=== PATIENT | male | born 1995 | race Caucasian/White ===

== ENCOUNTER 2018-12-10 15:18 | Emergency (ER) | payer OTHER ==
[2018-12-10] MEDS ORDERED: DEXAMETHASONE 10 MG/ML VIAL IM STA (15:42)
--- NOTE | 2018-12-10 15:45 | ED Physician Documentation ---
PD HPI SKIN - Stated complaint Stated Complaint: BODY ITCHING/RT EYE ITCHING - Chief complaint Chief Complaint: Allergic Rx - History obtained from History obtained from: Patient - History of Present Illness Timing - onset: How many weeks ago (3) Timing - duration: Weeks (3) Timing - details: Gradual onset Pain level max: 0 Pain level now: 0 Location: Bodywide Quality / character: Itchy Improved by: Other (prednisone helped mildly) Worsened by (comment): COMMENT (nothing) Associated symptoms: No: Fever, Myalgias, Joint pain, Headache, Facial swelling, Dyspnea, Abd pain, N/V/D, Urinary sx Contributing factors: Exposed to Poison emilie/oak Similar symptoms before: Diagnosis (has had this many times in the past.) Recently seen: Emergency Dept ([facility] and placed on prednisone for 5 days, states rash improved slightly but now worse.) Review of Systems Constitutional: denies: Fever, Chills GI: denies: Vomiting, Diarrhea Musculoskeletal: denies: Neck pain, Back pain Neurologic: denies: Headache PD PAST MEDICAL HISTORY - Past Medical History Past Medical History: No - Past Surgical History Past Surgical History: No - Present Medications Home Medications: Ambulatory Orders Medication Instructions Recorded Confirmed predniSONE [Deltasone] 10 mg PO [id number] #42 tab 12/10/18 - Allergies Allergies/Adverse Reactions: Allergies Allergy/AdvReac Type Severity Reaction Status Date / Time No Known Drug Allergies Allergy Verified 12/10/18 15:25 PD ED PE NORMAL - Vitals Vital signs reviewed: Yes - General General: Alert and oriented X 3, No acute distress - HEENT HEENT: Moist mucous membranes - Neck Neck: Supple, no meningeal sign - Cardiac Cardiac: RRR - Respiratory Respiratory: No respiratory distress, Clear bilaterally - Derm Derm: Warm and dry, Other (Vesicular scabbed rash over the bilateral forearms, legs and right cheek.) - Neuro Neuro: Alert and oriented X 3 Results - Vitals Vitals: Vital Signs - 24 hr 12/10/18 15:26 Temperature 36.5 C Heart Rate 69 Respiratory 16 Rate Blood Pressure 129/67 O2 Saturation 99 Oxygen O2 Source Room air PD MEDICAL DECISION MAKING - ED course Complexity details: considered differential, d/w patient ED course: Patient appears to have a contact dermatitis. Likely from poison oak/emilie. Will place on a steroid taper. Also given a dose of dexamethasone intramuscularly here. If he fails to improve, will follow-up with dermatology. Also recommend that he buy an hhbn-nrb-vqghpgo poison oak/emilie oil remover. Patient counseled regarding signs and symptoms for which I believe and urgent re-evaluation would be necessary. Patient with good understanding of and agreement to plan and is comfortable going home at this time This document was made in part using voice recognition software. While efforts are made to proofread this document, sound alike and grammatical errors may occur. Departure - Departure Disposition: 01 Home, Self Care Clinical Impression: Poison emilie Condition: Good Instructions: ED Dermatitis Poison Emilie Follow-Up: [facility] [Provider Group] - Within 3 Days [facility] [Provider Group] Prescriptions: predniSONE [Deltasone] 10 mg PO [id number] #42 tab Comments: Take the steroids until gone. Return if you worsen. If you are not improving as expected you should follow-up with dermatology.
[2018-12-10 16:14] VITALS: BP 121/63
== END 2018-12-10 16:17 | disposition home or self-care (01) ==
LOC: ED 15:18
DX: L23.7 Allergic contact dermatitis due to plants, except food (principal)
CPT/HCPCS: 99283; 99284

== ENCOUNTER 2019-04-28 12:57 | Emergency (ER) | payer OTHER ==
[2019-04-28 13:07] VITALS: BP 129/67
--- NOTE | 2019-04-28 13:29 | ED Physician Documentation ---
PD HPI URI - Stated complaint Stated Complaint: SORE THROAT - Chief complaint Chief Complaint: Heent - History obtained from History obtained from: Patient - History of Present Illness Timing - onset: Other (3 to 4 days of sore throat with minimal congestion cough. Had a fever last night. No health problems. No recent travel.) Review of Systems Constitutional: reports: Fever, Chills, Myalgias, Fatigue Ears: denies: Loss of hearing, Ear pain Nose: reports: Rhinorrhea / runny nose, Congestion, Sinus pressure / pain Throat: reports: Sore throat PD PAST MEDICAL HISTORY - Past Medical History Past Medical History: No Cardiovascular: None Respiratory: None Neuro: None Endocrine/Autoimmune: None GI: None : None HEENT: None Psych: None - Past Surgical History Past Surgical History: No - Present Medications Home Medications: Ambulatory Orders Medication Instructions Recorded Confirmed No Known Home Medications 04/28/19 04/28/19 - Allergies Allergies/Adverse Reactions: Allergies Allergy/AdvReac Type Severity Reaction Status Date / Time No Known Drug Allergies Allergy Verified 04/28/19 13:07 - Social History Does the pt smoke?: No Smoking Status: Never smoker Does the pt drink ETOH?: Yes Does the pt have substance abuse?: No - Immunizations Immunizations are current?: Yes PD ED PE NORMAL - Vitals Vital signs reviewed: Yes - General General: Alert and oriented X 3, No acute distress - HEENT HEENT: Other (Red tonsillar pillars without tonsillar swelling or exudates, also posterior cobblestoning, no anterior cervical adenopathy, TMs are normal.) - Neck Neck: Supple, no meningeal sign, No bony TTP - Neuro Neuro: Alert and oriented X 3, Normal speech Results - Vitals Vitals: Vital Signs - 24 hr 04/28/19 13:04 Temperature 36.6 C Heart Rate 100 Respiratory 18 Rate Blood Pressure 129/67 O2 Saturation 97 Oxygen O2 Source Room air - Labs Labs: Laboratory Tests 04/28/19 13:11 Group A Strep Rapid Negative PD MEDICAL DECISION MAKING - ED course ED course: 23-year-old gentleman presents with clinical and rapid strep negative viral pharyngitis, conservative care was advised. Departure - Departure Disposition: 01 Home, Self Care Clinical Impression: Pharyngitis Qualifiers: Pharyngitis/tonsillitis etiology: unspecified etiology Qualified Code(s): J02.9 - Acute pharyngitis, unspecified Condition: Good Record reviewed to determine appropriate education?: Yes Instructions: ED Pharyngitis Viral Report Pending Comments: Your strep test is negative, we will perform a throat culture, if it grows a pathogen bacterial pathogen we will call you in 48 hours or so, return for new or worsening symptoms. Follow-up with your foot doctor in 5 days if not better. Ibuprofen and Chloraseptic [id number] as needed for pain.
[2019-04-28 13:35] LABS: RAPID STREP SCREEN Negative (Negative)
== END 2019-04-28 13:40 | disposition home or self-care (01) ==
LOC: ED 12:57
DX: J02.8 Acute pharyngitis due to other specified organisms (principal); B97.89 Other viral agents as the cause of diseases classified elsewhere
CPT/HCPCS: 87070; 87077; 87430; 99282; 99283

== ENCOUNTER 2021-03-10 07:14 | Emergency (ER) | payer OTHER ==
[2021-03-10] MEDS ORDERED: KETOROLAC 30 MG/ML VIAL IM STA (07:50)
[2021-03-10] MEDS ORDERED: HYDROmorphone 1 MG/ML CARPUJECT IM STA (07:50)
[2021-03-10] MEDS ORDERED: ACETAMINOPHEN 325 MG TABLET PO STA (07:50)
[2021-03-10] MEDS ORDERED: methocarbamoL 500 MG TABLET PO STA (07:50)
--- NOTE | 2021-03-10 08:35 | CT Report ---
PROCEDURE: Abdomen/Pelvis WO INDICATIONS: LEFT flank to abd pain for 3 days, worsening TECHNIQUE: Noncontrast 5 mm thick sections acquired from the diaphragms to the symphysis. 5 mm coronal and sagi ttal reformats were then performed. For radiation dose reduction, the following was used: automated exposure control, adjustment of mA and/or kV according to patient size. COMPARISON: None. FINDINGS: Inferior chest: No focal consolidation, pleural effusion, or pneumothorax. No cardiomegaly or perica rdial effusion. Gallbladder: The gallbladder is distended with a smooth wall. Biliary tree: No intra-or extrahepatic biliary ductal dilatation. Liver: The liver demonstrates normal appearance. Spleen: Normal size and morphology is seen. Pancreas: Normal morphology without masses or inflammatory changes. Adrenals: Normal size without masses. Kidneys: Normal size and morphology. No contour deforming solid masses or evidence of obstructive uro lissy. Vasculature: No evidence of aneurysm or other significant vascular pathology. Lymphatic system: No pathologic enlargement by size criteria. Bowel: No intestinal obstruction. Moderate stool burden throughout the colon. Normal appendix. Peritoneum/Retroperitoneum: No free intraperitoneal gas or large collection. Urinary bladder: The urinary bladder is distended with a smooth thin wall. Pelvic organs: No significant abnormality. Bones/soft tissues: No significant abnormality. IMPRESSION: 1.No acute abnormality. 2.Moderate stool burden throughout the colon. Reviewed by: Rylan Abbasi MD on 03/10/2021 8:34 AM [facility] Approved by: Rylan Abbasi MD on 03/10/2021 8:34 AM [facility] Station ID: [id number]
[2021-03-10] MEDS ORDERED: HYDROcod/ACETAM 5/325 MG TABLET PO STA (09:00)
--- NOTE | 2021-03-10 09:05 | ED Physician Documentation ---
PD HPI BACK PAIN - Stated complaint Stated Complaint: BACK PAIN - Chief complaint Chief Complaint: Back Pain - History obtained from History obtained from: Patient - History of Present Illness Timing - onset: How many days ago (3) Timing - duration: Days (3) Timing - details: Abrupt onset (onset 3 days ago of left flank pain that eased after few hours and remained mild until last night when got worse. Has remained left flank to left mid abd.) Location: Lower, Left Quality: Pain, Sharp, Aching Associated symptoms: No: Fever, Weakness, Numbness Worsened by: Movement. No: Twisting, Palpation Contributing factors: No: Lifting, Twisting, Trauma (he is not aware of particular injury starting the pain.) Similar symptoms before: Has not had sx before Recently seen: Not recently seen Review of Systems Constitutional: denies: Fever, Chills Nose: denies: Rhinorrhea / runny nose, Congestion Throat: denies: Sore throat Respiratory: denies: Cough GI: denies: Nausea, Vomiting, Constipation, Diarrhea Skin: denies: Rash, Lesions Musculoskeletal: reports: Back pain Neurologic: denies: Focal weakness, Numbness, Near syncope PD PAST MEDICAL HISTORY - Past Medical History Past Medical History: No Cardiovascular: None Respiratory: None Neuro: None Endocrine/Autoimmune: None GI: None : None HEENT: None Psych: None Derm: None - Past Surgical History Past Surgical History: No - Present Medications Home Medications: Ambulatory Orders Medication Instructions Recorded Confirmed Docusate Sodium 100Mg Capsule 100 mg PO DAILY #15 cap 03/10/21 [Colace 100Mg Capsule] HYDROcod/ACETAM 5/325 [[place] 5/325] 1 ea PO Q6H PRN #14 tablet 03/10/21 Ibuprofen [Motrin] 600 mg PO TID PRN #25 tab 03/10/21 methocarbamoL [Robaxin] 500 mg PO Q6H PRN #20 tablet 03/10/21 - Allergies Allergies/Adverse Reactions: Allergies Allergy/AdvReac Type Severity Reaction Status Date / Time No Known Drug Allergies Allergy Verified 03/10/21 07:26 - Social History Does the pt smoke?: No Smoking Status: Never smoker Does the pt drink ETOH?: Yes Does the pt have substance abuse?: No - Immunizations Immunizations are current?: Yes PD ED PE NORMAL - Vitals Vital signs reviewed: Yes - General General: Alert and oriented X 3, Well developed/nourished, Other (appears in considerable pain left flank. ) - Cardiac Cardiac: RRR, No murmur - Respiratory Respiratory: Clear bilaterally - Abdomen Abdomen: Normal bowel sounds, Soft, Non distended, No organomegaly, Other (mild tender left mid abd wihtout guarding nor percussion tender. ) - Male Male : Deferred - Rectal Rectal: Deferred - Back Back: No spinal TTP, Other (left CVA tender to percussion. ) - Derm Derm: Normal color, Warm and dry, No rash - Neuro Neuro: Alert and oriented X 3, No motor deficit, No sensory deficit, Normal speech Results - Vitals Vitals: Oxygen O2 Source Room air - Rads (name of study) abd/pelvic CT Radiology: Prelim report reviewed (no kidney stones nor acute process. Moderate stool burden throughout colon. ), See rad report PD MEDICAL DECISION MAKING - ED course Complexity details: reviewed results, re-evaluated patient (improved with meds in ER. ), considered differential (left back pain concerning for kidney stone or intestinal process. Can get CT to ensure not cause other than muscular. ), d/w patient Departure - Departure Disposition: Home, Self Care Clinical Impression: Low back strain Qualifiers: Encounter type: initial encounter Qualified Code(s): S39.012A - Strain of muscle, fascia and tendon of lower back, initial encounter Condition: Stable Record reviewed to determine appropriate education?: Yes Instructions: ED Sprain Strain Lumbar Follow-Up: Carlene Hodge MD [Primary Care Provider] - Prescriptions: Docusate Sodium 100Mg Capsule [Colace 100Mg Capsule] 100 mg PO DAILY #15 cap Ibuprofen [Motrin] 600 mg PO TID PRN #25 tab PRN Reason: Pain HYDROcod/ACETAM 5/325 [[place] 5/325] 1 ea PO Q6H PRN #14 tablet PRN Reason: Pain methocarbamoL [Robaxin] 500 mg PO Q6H PRN #20 tablet PRN Reason: Spasms Comments: Your CT scan does not show any acute abnormalities. No kidney stones nor bony abnormality. Your spine alignment appears okay. No gross disc problems. This sounds like a muscle strain with spasms. Home for rest and light use for 2 to 3 days as needed. Then another 4 to 5 days after of note vigorous back muscle use such as lifting, push pull, back exercises at the gym. This allows for healing time and less spasming. Local treatments such as ice or heat, massage, chiropractic are all good. Ibuprofen 3 times a day with food to help with inflammation. Add Robaxin muscle relaxant if needed for spasms and stiffness. Tylenol 650 mg 3-4 times a day for the next several days. Use hydrocodone if needed for worse pain at times. I would anticipate improvement over the next several days and being able to be back to normal activities in about a week or so. Recheck with your primary if not better in that time. I transmitted your prescriptions to [facility] pharmacy. I am prescribing a short course of narcotic pain medication for you. These are potentially dangerous and addictive medications that should be used carefully. These medications may constipate you. Take an qtne-jrc-ovntiyg stool softener such as docusate twice daily with plenty of water while taking these medications. If you go 24 hours without a bowel movement, take [id number] MiraLAX, per package instructions. Do not drink or drive while taking these medications. If you received narcotic or sedating medications while in the emergency department do not drive for 24 hours. Store this medication in a safe, secure place and out of reach of children. It is a violation of federal law to give or sell this medication to another person or to use in a manner other than prescribed. The ED will not refill narcotic prescriptions, including prescriptions lost or stolen. You can dispose of unwanted medications at the [facility]'s office or at several pharmacies such as [facility]. Also use a daily stool softener to keep from getting constipated with the pain medicines. Forms: Activity restrictions Discharge Date/Time: 03/10/21 09:15
[2021-03-10 09:07] VITALS: BP 129/72
== END 2021-03-10 09:15 | disposition home or self-care (01) ==
LOC: ED 07:14
DX: S39.012A Strain of muscle, fascia and tendon of lower back, initial encounter (principal); X58.XXXA Exposure to other specified factors, initial encounter
CPT/HCPCS: 74176; 96372; 99284; A9270; J1170

== ENCOUNTER 2021-12-04 10:39 | Outpatient (CLI) | payer OTHER ==
[2021-12-04 11:25] VITALS: BP 120/70
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
== END 2021-12-04 10:40 | disposition home or self-care (01) ==
LOC: SC 10:39
PROVIDERS: ATTEND Nurse Practitioner Family
DX: R06.83 Snoring (principal); G47.8 Other sleep disorders; R06.81 Apnea, not elsewhere classified; G47.10 Hypersomnia, unspecified; R53.83 Other fatigue; Z87.891 Personal history of nicotine dependence
CPT/HCPCS: 99203; 99212

== ENCOUNTER 2021-12-14 20:38 | Outpatient (CLI) | payer OTHER | END 2021-12-14 20:39 | disposition home or self-care (01) | LOC: SC 20:38 | PROVIDERS: ATTEND Nurse Practitioner Family | DX: R06.83 Snoring (principal); G47.8 Other sleep disorders; R06.81 Apnea, not elsewhere classified; G47.10 Hypersomnia, unspecified; R53.83 Other fatigue | CPT/HCPCS: 95810 ==

== ENCOUNTER 2022-02-11 10:21 | Outpatient (CLI) | payer OTHER ==
--- NOTE | 2022-02-11 10:58 | SLEEP CARE CONSULTATION ---
Information from patient questionnaire entered by Beverly Chavez. I have reviewed and concur with the information entered by Beverly Chavez. This document represents the service I personally performed and the decisions made by , Denise Fisher ARNP. History of Present Illness Service Date and Time: 02/11/2022 1021 Initial Vass Sleepiness Scale score: 14 (12/04/21) Current Vass Sleepiness Scale score: 13 (02/11/2022) Additional HPI information: CARLOS GREEN returns for follow up and results of the recently performed polysomnography. The patient was informed of the following findings: No significant sleep disordered breathing with an average AHI of 2,7 and chucho oxygen saturation of 89%. I explained the pathophysiology behind obstructive sleep apnea. Patient does not have sleep apnea and was advised how weight gain could increase the risk of developing sleep apnea in the future. I strongly encouraged the patient to lose weight. Patient has light to moderate snoring. Snoring can be reduced by weight loss. Weight loss is best achieved with diet consult. Patient instructed to contact PCP for referral. Snoring can also be treated with an oral appliance from a dentist. Advised to check insurance coverage. In addition, an ENT evaluation can be do to see if other treatment is indicated. Patient counseled not drink alcohol less than 4 hours before bedtime as it can increase snoring and apnea. Patient was cautioned about risks of drowsy driving until sleepiness symptoms resolve. Sleep Study - Results Type of Sleep Study: Polysomnography (COMPLETED 12/14/2021) Prior sleep studies: No Polysomnography/Home Sleep Study results: IMPRESSION: The quality of the study is good. The patient had normal sleep efficiency. The sleep architecture was also normal. Respiratory monitoring showed no significant sleep disordered breathing (AHI = 2.7) or hypoxia (chucho oxygen saturation of 89%). The patient slept adequately in supine position (supine AHI = 3.1; non-supine = 1.94). Snore was light to moderate in intensity. There was no significant periodic leg movement of sleep. Cardiac rhythm was normal sinus rhythm without significant arrhythmia. No abnormal behavior (parasomnia) observed during the night. Allergies and Home Medications Drug allergies reviewed: Yes (NKDA) Home medication list reviewed: Yes (Buspirone 15 mg; Hydroxyzine 25 mg) Review of Systems Review of systems same as previous: No (Anxiety) Physical Exam Vital signs obtained and entered by: BEVERLY Guidry MA Blood Pressure: 130/80 (LEFT ARM) Cuff size: regular Heart Rate: 74 O2 Saturation: 98 Height: 5 ft 11 in Weight: 183 lb 9.6 oz Body Mass Index: 25.6 BMI Classification: Overweight Impression and Plan 1. Insomnia, unspecified. Insomnia is generally caused by an irregular sleep schedule, spending too much time in bed, napping, caffeine, electronics, lack of a relaxing bedtime ritual and clock watching. Other factors can include anxiety/depression, pain, medications, and obstructive sleep apnea. Patient states that he can fall asleep easily and about anywhere. He will wake up frequently throughout the night. He denies racing thoughts and can go back to sleep most of the time. 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 He was just started on hydroxyzine and Buspirone but he does not feel like these are going to help reduce his anxiety. [facility] How to Sleep Better pamphlet given and reviewed. A sleep diary will be completed for the next 2 weeks to assist implementation of recommendations and for further evaluation of sleep concerns. 2. Snoring but no significant sleep disordered breathing. Patient advised that often weight loss will reduce snoring as well as apnea risk. An oral appliance can also be used for snoring. This would require a dental consultation. Patient cautioned not to use other online appliances as can cause bite issues. A list of accredited dentists in [facility] and one local dentist who makes oral appliances is available in the office. Patient is advised to check if insurance will cover. An ENT consult can also be helpful to determine if any other treatment is an option. * 2 weeks sleep diary * Attempt to lose weight * Avoid alcohol consumption near bedtime * The patient is cautioned about driving until sleepiness is completely resolved. * Return in 1-2 months for follow up for insomnia. Counseling Topics: Weight loss health impact Follow up with Sleep Care in: 1-2 months (with Dr. Hamilton) Visit Type: In Office Time Spent with Patient (minutes): 21 Provider Statement: I spent 100% of the Face to Face Visit with the patient with greater than 50% spent counseling the patient and coordination of care.
[2022-02-11 11:01] VITALS: BP 130/80
== END 2022-02-11 10:22 | disposition home or self-care (01) ==
LOC: SC 10:21
PROVIDERS: ATTEND Nurse Practitioner Family
DX: G47.00 Insomnia, unspecified (principal); R06.83 Snoring; E66.3 Overweight; Z68.25 Body mass index [BMI] 25.0-25.9, adult
CPT/HCPCS: 99212; 99213

== ENCOUNTER 2022-03-22 13:22 | Outpatient (CLI) | payer OTHER ==
[2022-03-22 14:57] VITALS: BP 118/72
--- NOTE | 2022-03-22 14:57 | SLEEP CARE CONSULTATION ---
Information from patient questionnaire entered by Jennifer Chavez. I have reviewed and concur with the information entered by Jennifer Chavez. This document represents the service I personally performed and the decisions made by me, Ascencion Briones MD, [facility]. History of Present Illness Service Date and Time: 03/22/2022 1322 Reason for follow up: one month (F/U ON SLEEP DIARY ) Prior sleep studies: No HPI additional information: Ms. Grady complains of insomnia. His in-laboratory polysomnography was normal. According to his sleep log which he just filled out today, his Bedtime is 9 11 pm, and wakeup time at 5:20 10 am. He takes 5- 10 mins to fall asleep. He reports getting 6 8 hours of sleep a night (average 7). He continues to complain of excessive daytime sleepiness. His Drummonds Sleepiness Scale score is 15. He can fall asleep at work and driving. He also complains of waking up 3 5 times during the night. Sleep Study - Results Prior sleep studies: No Subjective Initial Drummonds Sleepiness Scale score: 14 (12/04/21) Allergies and Home Medications Drug allergies reviewed: Yes Home medication list reviewed: Yes Allergy and home medication list: Allergies No Known Drug Allergies Allergy (Verified 02/11/22 10:37) Review of Systems Review of systems same as previous: Yes Physical Exam Vital signs obtained and entered by: JENNIFER Guidry MA Blood Pressure: 118/72 (LEFT ARM) Cuff size: regular Heart Rate: 69 O2 Saturation: 97 Height: 5 ft 11 in Weight: 182 lb 9.6 oz Body Mass Index: 25.4 BMI Classification: Overweight Impression and Plan IMPRESSION: 1. Hypersomnia, of unclear etiology. I will proceed to a multiple sleep latency test (MSLT). This will require a polysomnography as well. For the test to be valid, the patient will need to be off hydroxyzine and buspirone for at least 2 weeks. For buspirone, he needs to clear it with the prescribing provider before discontinuing the medication. PLAN: 1. Order a polysomnography + multiple sleep latency test (MSLT) provided that the patient can stop taking hydroxyzine and buspirone for at least 2 weeks prior to the test. 2. Return for a follow up after the test. Follow up with Sleep Care in: 1-2 months Time Spent with Patient (minutes): 15
== END 2022-03-22 13:23 | disposition home or self-care (01) ==
LOC: SC 13:22
PROVIDERS: ATTEND Internal Medicine Pulmonary Disease
DX: G47.10 Hypersomnia, unspecified (principal); F32.A Depression, unspecified; Z79.899 Other long term (current) drug therapy
CPT/HCPCS: 99212

== ENCOUNTER 2023-04-05 16:19 | Emergency (ER) | payer OTHER ==
--- NOTE | 2023-04-05 16:33 | ED Physician Documentation ---
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, where a silicone casting was being made and more material than expected went into canal and caused a snug full amount apparently all the way to TM, with pain on attempt to remove it.) PD PAST MEDICAL HISTORY - Past Medical History Past Medical History: Yes Cardiovascular: None Respiratory: None Neuro: None Endocrine/Autoimmune: None GI: None : None HEENT: None Psych: None Derm: None - Past Surgical History Past Surgical History: Yes - Present Medications Home Medications: Ambulatory Orders Medication Instructions Recorded Confirmed Buspirone HCl 15 mg ORAL DAILY 02/11/22 04/05/23 Neomycin/Polymyx/Hc Otic Drops 4 drops OT TID #10 ml 04/05/23 [Cortisporin Ear Susp] - Allergies Allergies/Adverse Reactions: Allergies Allergy/AdvReac Type Severity Reaction Status Date / Time No Known Drug Allergies Allergy Verified 04/05/23 16:31 - Social History Does the pt smoke?: No Smoking Status: Never smoker Does the pt drink ETOH?: Yes Does the pt have substance abuse?: No - Immunizations Immunizations are current?: Yes PD ED PE NORMAL - Vitals Vital signs reviewed: Yes - HEENT HEENT: No: Ears normal (right is normal. Left ear with pink silicone glob in outer helix area and extends to canal. Seems snuggly in place. Very painful for slight movements. ) - Neck Neck: Supple, no meningeal sign, No adenopathy - Cardiac Cardiac: No murmur Results - Vitals Vitals: Vital Signs - 24 hr 04/05/23 16:27 Temperature 36 C L Heart Rate 62 Respiratory 16 Rate Blood Pressure 136/93 H O2 Saturation 100 Oxygen O2 Source Room air PD Medical Decision Making - ED course Complexity details: considered differential (silicone casting of left ear canal was stuck in ear canal, and was painful to try to remove due to so snug fit. Pt given IM meds for Toradol and Dilaudid to help. I was able to get some lido with epi and the surgilube around the edges to behind toe FB using small IV catheter tip on syringe.), d/w patient ED course: The patient was more comfortable doing the slow pulling of the FB as he could modulate the movement in his own feedback of discomfort. He used slow pulling of it and I injected more lido and surgilube around edge of the FB. Subsequently the silicone did lubricate enough to loosen and slide out. Canl with some redness and blood out with the FB. Departure - Departure Disposition: 01 Home, Self Care Clinical Impression: Foreign body in left auditory canal, Irritation of left external auditory canal Condition: Stable Record reviewed to determine appropriate education?: Yes Prescriptions: Neomycin/Polymyx/Hc Otic Drops [Cortisporin Ear Susp] 4 drops OT TID #10 ml Comments: You can use the antibiotics/anti-inflammatory eardrops several times daily for the next few days. Concern with the irritation in the canal could be potential for infection. Use ibuprofen and/or Tylenol if needed for pains. Follow-up with the sustainability purchasing agent. Forms: PCP List Discharge Date/Time: 04/05/23 20:05
[2023-04-05 16:35] VITALS: BP 136/93; O2SAT 100
[2023-04-05] MEDS ORDERED: KETOROLAC 30 MG/ML VIAL IM STA (16:58)
[2023-04-05] MEDS ORDERED: HYDROmorphone 1 MG/ML CARPUJECT IM STA ×2 (17:39→18:41)
[2023-04-05] MEDS ORDERED: NEOMYCIN/POLYMYX/HC OTIC DROPS LEFTEAR STA (19:10)
== END 2023-04-05 20:05 | disposition home or self-care (01) ==
LOC: ED 16:19
DX: T16.2XXA Foreign body in left ear, initial encounter (principal); W44.8XXA Other foreign body entering into or through a natural orifice, initial encounter
CPT/HCPCS: 96372; 99283; A9270; J1170